=== PATIENT | male | born 1950 | race Caucasian/White ===

== ENCOUNTER 2017-01-17 08:51 | Day surgery (SDC) | payer OTHER ==
[2017-01-17] MEDS ORDERED: LIDOCAINE HCL 2% LUER-JET ONE (12:15)
[2017-01-17] MEDS ORDERED: DIPRIVAN 20 ML VIAL IVP ONE (12:15)
[2017-01-17] MEDS ORDERED: VERSED ONE (12:15)
[2017-01-17 13:55] VITALS: BP 126/67; TEMP 98
--- NOTE | 2017-01-18 11:12 | OP ---
INDICATIONS FOR PROCEDURE: 66 year old gentleman presents for colonoscopy. He has a history of adenomatous polyps with last colonoscopy over 5 years ago. He is also having heartburn with break through reflux symptoms. MEDICATIONS: SEE ANESTHESIA NOTES. PROCEDURE: 1. ENDOSCOPY 2. COLONOSCOPY SNARE POLYPECTOMY REPORT: The risks, benefits, alternatives and limitations were discussed in detail with the patient. Informed consent was obtained. After adequate sedation was achieved, the video endoscope was introduced in the posterior pharynx and esophagus under direct vision and easily advanced down to the second portion of the duodenum. I then slowly withdrew. The duodenal mucosa appeared unremarkable as did the duodenal bulb. The antrum body is relatively unremarkable. The scope was retroflexed to look at the cardia and fundus which was unremarkable. The scope was anteflexed and withdrawn back through the esophagus. GE junction was at the top of the gastric folds, it appeared unremarkable and esophageal mucosa was unremarkable. The patient tolerated the procedure well with stable vital signs and pulse oximetry throughout. The patient's bed was turned and a digital rectal exam revealed good tone, no masses. The colonoscope was introduced into the rectum and advanced under direct visual guidance to the cecum. The cecum was identified by the appendiceal orifice and IC valve. I then slowly withdrew the scope in a circumferential manner and examined the mucosa quite carefully. I looked on the proximal and distal sides of the folds and flexures as best as possible and was able to retroflex the scope in the right colon and left colon to increase visualization. In the ascending colon there was a diminutive 3-4mm polyp that I destroyed using a hot snare. The remaining colon was unremarkable other than mild diverticulosis scattered throughout the sigmoid. The scope was retroflexed to look at the anal canal which was unremarkable as well. The prep was good and the withdraw time was 10 minutes and 32 seconds. The patient tolerated the procedure well with stable vital signs and pulse oximetry throughout. IMPRESSION: 1. Normal upper endoscopy exam 2. Diminutive colon polyp destroyed. 3. Sigmoid diverticulosis RECOMMENDATIONS: 1. Strict reflux precautions 2. High fiber diet 3. Office visit as needed 4. Colonoscopy examination again in 5 years or sooner if there are signs or symptoms to indicate otherwise. CC: Dr. Arturo FONTANA
== END 2017-01-17 13:50 | disposition home or self-care (01) ==
LOC: SURG 08:51
PROVIDERS: ATTEND Internal Medicine Gastroenterology
DX: Z09 Encounter for follow-up examination after completed treatment for conditions other than malignant neoplasm (principal); Z86.010 Personal history of colon polyps; K63.5 Polyp of colon; K21.9 Gastro-esophageal reflux disease without esophagitis; K57.30 Diverticulosis of large intestine without perforation or abscess without bleeding

== ENCOUNTER 2017-01-23 09:20 | Outpatient (CLI) | payer OTHER ==
--- NOTE | 2017-01-23 09:56 | CT ---
EXAM: CT cervical spine without contrast HISTORY: Neck pain going down right hand COMPARISON: None TECHNIQUE: CT cervical spine performed without intravenous contrast. Coronal and sagittal reformatt ed images obtained. FINDINGS: Vertebral bodies normal height. No fracture. No subluxation. Straightening of the duran l cervical lordosis. Mild to moderate multilevel intervertebral disc space narrowing. Multilevel ma rginal osteophyte formation. Multilevel facet and uncovertebral hypertrophy. Prevertebral soft tiss ues appear normal. C2-C3: No central canal or neural foraminal narrowing. C3-C4: Posterior disc osteophyte complex and facet arthrosis causing mild central canal, moderate to severe right and moderate left neural foraminal narrowing. C4-C5: Posterior disc osteophyte complex and facet arthrosis causing mild to moderate central canal, moderate to severe right and moderate left neural foraminal narrowing. C5-C6: No central canal or neural foraminal narrowing. C6-C7: No central canal or neural foraminal narrowing. C7-C1: No central canal or neural foraminal narrowing. IMPRESSION: 1. Chronic discogenic degenerative disease and facet arthrosis, greatest at C3-C4, C4-C5. Please se e segmental analysis. 2. Straightening of the normal cervical lordosis
== END 2017-01-23 09:21 | disposition home or self-care (01) ==
LOC: RAD 09:20
PROVIDERS: ATTEND Internal Medicine
DX: M54.2 Cervicalgia (principal); R20.2 Paresthesia of skin

== ENCOUNTER 2017-08-09 09:38 | Emergency (ER) ==
[2017-08-09 09:44] VITALS: BP 128/76; TEMP 96.6; BMI 25.7
[2017-08-09] MEDS ORDERED: LIDOCAINE HCL 1% SDV ONE (09:58)
[2017-08-09] MEDS ORDERED: LIDOCAINE HCL 1% SDV SUBCUT STA (09:58)
[2017-08-09] MEDS ORDERED: TENIVAC IM ONE (10:07)
--- NOTE | 2017-08-09 10:10 | ED.PDOC ---
General ED Provider: Dr. ANNA IBARRA Chief Complaint: Finger Laceration Stated Complaint: FINGER LACERATION LEFT THUMB Time Seen by Physician: 10:00 (SEE PHOTOS) Mode of Arrival: Walk-In Information Source: Patient Exam Limitations: No limitations Primary Care Provider: SHIRLENE TEMPLE Nursing and Triage Documentation Reviewed and Agree: Yes Reviewed sepsis parameters & appropriate labs ordered?: Yes System Inflammatory Response Syndrome: Not Applicable Sepsis Protocol: For patient's 13 years and over: Temp is 96.8 and below OR 101 and greater Pulse >90 BPM Resp >20/minute Acutely Altered Mental Status Are patient's symptoms suggestive of a new infection, such as: -Pneumonia -Skin, Soft Tissue -Endocarditis -UTI -Bone, Joint Infection -Implantable Device -Acute Abdominal Infection -Wound Infection -Meningitis -Blood Stream Catheter Infection -Unknown System Inflammatory Response Syndrome: Not Applicable Skin Complaint Exam - Lac/Torso/Upper Ext. Complaint/Exam Location of Injury: Left (THUMB SEE PHOTOS) Mechanism of Injury: Laceration Symptoms Are: Still present Initial Severity: Mild Current Severity: None Aggravating: None Alleviating: None Associated Signs and Symptoms: Denies: Fever, Chills, Erythema, Numbness, Tingling Differential Diagnoses: Laceration Review of Systems - Review Of Systems Constitutional: Reports: No symptoms Eyes: Reports: No symptoms Ears, Nose, Mouth, Throat: Reports: No symptoms Respiratory: Reports: No symptoms Cardiac: Reports: No symptoms GI: Reports: No symptoms : Reports: No symptoms Musculoskeletal: Reports: No symptoms Skin: Reports: Other (LACERATION LEFT THUMB) Neurological: Reports: No symptoms Endocrine: Reports: No symptoms Hematologic/Lymphatic: Reports: No symptoms All Other Systems: Reviewed and Negative Past Medical History - Past Medical History Previously Healthy: Yes Endocrine: Reports: None Cardiovascular: Reports: None Respiratory: Reports: None Hematological: Reports: None Gastrointestinal: Reports: None Genitourinary: Reports: None Neuro/Psych: Reports: None Musculoskeletal: Reports: None Cancer: Reports: None - Surgical History General Surgical History: Reports: None - Family History Family History: Reports: None - Social History Smoking Status: Former smoker Hx Substance Use: No Alcohol Screening: None - Immunizations Tetanus Shot up to Date: No Physical Exam - Physical Exam Appearance: Well-appearing, No pain distress, Well-nourished Eyes: ALEXANDRA, EOMI, Conjunctiva clear ENT: Ears normal, Nose normal, Oropharynx normal Respiratory: Airway patent, Breath sounds clear, Breath sounds equal, Respirations nonlabored Cardiovascular: RRR, Pulses normal, No rub, No murmur GI/: Soft, Nontender, No masses, Bowel sounds normal, No Organomegaly Musculoskeletal: Normal strength, ROM intact, No edema, No calf tenderness Skin: Warm, Dry (1CM LACERATION LEFT THUMB) Neurological: Sensation intact, Motor intact, Reflexes intact, Cranial nerves intact, Alert, Oriented Psychiatric: Affect appropriate, Mood appropriate Procedures - Laceration/Wound Repair No standard instances Wound Description: Linear Wound Length (cm): 1CM Wound Width: 1MM Wound Depth: 1MM Wound Explored: Clean Wound Irrigated: No Wound Prep: Hibiclens Anesthesia: Lidocaine (1ML PLAIN 1 PERCENT) Wound Debrided: Minimal Wound Repaired With: Sutures (3 PROLENE) Suture Size and Type: 3/PROLENE Number of Sutures: 5 Number of [place]: 0 Critical Care Note - Critical Care Note Total Time (mins): 0 Course - Course Orders, Labs, Meds: Orders Category Date Time Status Lidocaine HCl/Pf [Lidocaine HCl 1% Sdv] MEDS 08/09/17 09:58 Discontinued 5 ml .ROUTE .STK-MED ONE Lidocaine HCl/Pf [Lidocaine HCl 1% Sdv] MEDS 08/09/17 09:58 Discontinued 5 ml SUBCUT ONCE STA Tetanus and Diphtheria Tox/Pf [Tenivac] MEDS 08/09/17 10:07 Once 0.5 ml IM .ONCE ONE Medications Discontinued Medications Generic Name Dose Route Start Last Admin Trade Name Freq PRN Reason Stop Dose Admin Lidocaine HCl 5 ml 08/09/17 09:58 Lidocaine Hcl 1% Sdv SUBCUT 08/09/17 09:59 ONCE STA Vital Signs: Temp Pulse Resp BP Pulse Ox 08/09/17 09:40 96.6 F L 59 L 16 128/76 96 Departure - Departure Time of Disposition: 10:10 Disposition: HOME SELF-CARE Discharge Problem: Laceration of finger Instructions: Finger Laceration (ED) Condition: Good Pt referred to PMD for follow-up: Yes IPMP verified?: No Additional Instructions: Please call your Family Physician as soon as possible to schedule a follow-up appointment. Allergies/Adverse Reactions: Allergies No Known Allergies Allergy (Verified 08/09/17 09:44) Home Medications: Ambulatory Orders Ascorbic Acid [Vitamin C] 1,000 mg PO DAILY 01/17/17 Cholecalciferol (Vitamin D3) [Vitamin D3] 1,000 unit PO DAILY 01/17/17 Lansoprazole 30 mg PO DAILY 01/17/17 Losartan Potassium 100 mg PO DAILY 01/17/17 Multivitamin 1 cap PO DAILY 01/17/17 [place]-3/Dha/Epa/Fish Oil [[place] 3 500 Softgel] 1,000 mg PO BID 01/17/17 Simvastatin 40 mg PO DAILY 01/17/17 Tamsulosin HCl [Flomax] 0.4 mg PO DAILY 01/17/17 Trazodone HCl 50 mg PO PRN PRN 01/17/17
== END 2017-08-09 10:46 | disposition home or self-care (01) ==
LOC: ED 09:38
DX: S61.012A Laceration without foreign body of left thumb without damage to nail, initial encounter (principal); W45.8XXA Other foreign body or object entering through skin, initial encounter
CPT/HCPCS: 90471; 90714; 99283

== ENCOUNTER 2021-01-07 09:21 | Inpatient (IN) ==
[2021-01-07 09:45] LABS: BORDETELLA PARAPERTUSSIS (PCR) NOT DETECTED (NOT DETECT); BORDETELLA PERTUSSIS (PCR) NOT DETECTED (NOT DETECT); CHLAMYDIA PNEUMONIAE (PCR) NOT DETECTED (NOT DETECT); CORONAVIRUS 229E (PCR) NOT DETECTED (NOT DETECT); CORONAVIRUS HKU1 (PCR) NOT DETECTED (NOT DETECT); CORONAVIRUS NL63 (PCR) NOT DETECTED (NOT DETECT); CORONAVIRUS OC43 (PCR) NOT DETECTED (NOT DETECT); HUMAN METAPNEUMOVIRUS (PCR) NOT DETECTED (NOT DETECT); HUMAN RHINOVIRUS/ENTEROV (PCR) NOT DETECTED (NOT DETECT); INFLUENZA B (PCR) NOT DETECTED (NOT DETECT); MYCOPLASMA PNEUMONIAE (PCR) NOT DETECTED (NOT DETECT); PARAINFLUENZA VIRUS 1 (PCR) NOT DETECTED (NOT DETECT); PARAINFLUENZA VIRUS 2 (PCR) NOT DETECTED (NOT DETECT); PARAINFLUENZA VIRUS 3 (PCR) NOT DETECTED (NOT DETECT); PARAINFLUENZA VIRUS 4 (PCR) NOT DETECTED (NOT DETECT); RESPIRATORY SYNCYTIAL V (PCR) NOT DETECTED (NOT DETECT)
[2021-01-07 10:34] LABS: ADENOVIRUS (PCR) NOT DETECTED (NOT DETECT)
[2021-01-07 10:35] LABS: SARS_COV_2 (PCR) NOT DETECTED (NOT DETECT)
[2021-01-07] MEDS ORDERED: ATROPINE SULFATE PFS IVP PRN (11:36)
[2021-01-07] MEDS ORDERED: NITROSTAT SL PRN (11:36)
[2021-01-07] MEDS ORDERED: TYLENOL PO PRN (11:36)
[2021-01-07 11:51] VITALS: BMI 26.9
[2021-01-07 11:57] LABS: BASOPHILS # (AUTO) 0.1 K/uL (0-0.2); BASOPHILS % (AUTO) 1.3 % (0.0-3.0); EOSINOPHILS # (AUTO) 0.1 K/ul (0.0-0.7); EOSINOPHILS % (AUTO) 1.5 % (0.0-7.0); HEMATOCRIT 37.7 % (42.0-52.0); HEMOGLOBIN 12.5 g/dl (14.0-18.0); IMMATURE GRANULOCYTE % (AUTO) 0.2 % (0.0-5.0); LYMPHOCYTES # (AUTO) 1.8 K/uL (0.60-3.4); LYMPHOCYTES % (AUTO) 33.4 (10.0-50.0); MEAN CORPUSCULAR HEMOGLOBIN 30.6 pg (27.0-31.0); MEAN CORPUSCULAR HGB CONC 33.2 (31.8-35.4); MEAN CORPUSCULAR VOLUME 92.4 fl (80.0-94.0); MONOCYTES # (AUTO) 0.6 K/uL (0.4-2.0); MONOCYTES % (AUTO) 10.7 (0-10); NEUTROPHILS # (AUTO) 2.9 K/ul (2.0-6.9); NEUTROPHILS % (AUTO) 52.9 % (42.2-75.2); PLATELET COUNT 197 10^3/uL (140-440); RDW COEFFICIENT OF VARIATION 12.4 % (11.6-14.8); RED BLOOD COUNT 4.08 10^6/ul (4.70-6.10); WHITE BLOOD COUNT 5.51 K/ul (4.2-10.2)
[2021-01-07 12:09] LABS: ALANINE AMINOTRANSFERASE 35.5 U/L (0-50); ALBUMIN 4.14 g/dL (3.5-5.0); ALKALINE PHOSPHATASE 57.3 U/L (56-119); ASPARTATE AMINO TRANSFERASE 34.3 U/L (17-59); BILIRUBIN,TOTAL 0.51 mg/dL (0.2-1.3); BLOOD UREA NITROGEN 13.9 mg/dL (9-20); CALCIUM 9.04 mg/dL (8.4-10.2); CARBON DIOXIDE 30.2 mmol/L (22-30.0); CHLORIDE 104.9 mmol/L (98-107); CREATINE KINASE 79.3 U/L (55-170); CREATININE 1.01 mg/dL (0.60-1.10); GLUCOSE 87.3 mg/dL (74-106); POTASSIUM 4.03 mmol/L (3.5-5.1); SODIUM 140.6 mmol/L (134.5-145); TOTAL PROTEIN 6.68 g/dL (6.3-8.2)
[2021-01-07 12:29] LABS: TROPONIN I < 0.012 ng/ml (0.0000-0.120)
--- NOTE | 2021-01-07 13:55 | DI ---
EXAM: CHEST FRONTAL VIEW HISTORY: Chest pain COMPARISON: None FINDINGS: Heart size appears prominent. No acute infiltrates are seen. No vascular congestion. Th ere is no consolidation, visible pleural fluid or pneumothorax. Bones reveal no acute fracture. IMPRESSION: Prominent heart size. No acute cardiopulmonary process.
--- NOTE | 2021-01-07 15:06 | US ---
EXAM: Carotid ultrasound HISTORY: Dizziness with position change COMPARISON: None TECHNIQUE: Carotid ultrasound was performed using Duplex imaging with oro scale, color, and Doppler imaging performed. FINDINGS: Right carotid: There is mild atherosclerotic plaque. Peak systolic velocity measurement in the righ t internal carotid artery is 0.29 meters per second. End-diastolic velocity measurement in the right internal carotid artery is 0.31 meters per second. Right internal to common carotid artery peak sys tolic velocity ratio is 1.5. Flow in the right vertebral artery is antegrade. Left carotid: There is mild atherosclerotic plaque. Peak systolic velocity measurement in the left internal carotid artery is 0.80 meters per second. End-diastolic velocity measurement in the left in ternal carotid artery is 0.24 meters per second. Left internal to common carotid artery peak systoli c velocity ratio measures 1.4. Flow in the left vertebral artery is antegrade. IMPRESSION: 1. Right internal carotid: No evidence for greater than 50% stenosis 2. Left internal carotid: No evidence for greater than 50% stenosis
[2021-01-07 15:07] LABS: BILIRUBIN,URINE Negative (NEGATIVE); CLARITY,URINE Clear (CLEAR); COLOR,URINE Yellow (YELLOW); GLUCOSE, URINE (UA) Negative (NEGATIVE); KETONES,URINE Negative (NEGATIVE); LEUKOCYTE ESTERASE ,URINE Negative (NEGATIVE); NITRITE,URINE Negative (NEGATIVE); PH,URINE 6.5 (5-9); PROTEIN,URINE Negative (NEGATIVE); URINE, BLOOD Trace-intact (NEGATIVE); UROBILINOGEN,URINE 0.2 (0.2)
[2021-01-07 15:09] LABS: SQUAMOUS EPITHELIAL CELL,UR NOT PRESENT (0-5)
[2021-01-07] MEDS ORDERED: MULTIVITAMIN TABLET PO SCH (17:00)
[2021-01-07] MEDS ORDERED: FLOMAX PO SCH (17:00)
[2021-01-07] MEDS: PROTONIX PO SCH (17:19)
[2021-01-07 20:01] LABS: CREATINE KINASE 65.2 U/L (55-170)
[2021-01-07 20:14] LABS: TROPONIN I < 0.012 ng/ml (0.0000-0.120)
[2021-01-07] MEDS: NORCO 7.5-325 PO PRN (20:35)
[2021-01-07] MEDS ORDERED: ZOCOR PO SCH (21:00)
[2021-01-07] MEDS ORDERED: DESYREL PO SCH (21:00)
[2021-01-07] MEDS ORDERED: NON-FORMULARY MEDICATION (Diclofenac Sodium 50 mg Tablet,Delayed Release (Dr/Ec)) PO SCH (21:00)
[2021-01-08 06:04] LABS: BASOPHILS # (AUTO) 0.1 K/uL (0-0.2); EOSINOPHILS # (AUTO) 0.1 K/ul (0.0-0.7); EOSINOPHILS % (AUTO) 1.9 % (0.0-7.0); HEMOGLOBIN 12.4 g/dl (14.0-18.0); IMMATURE GRANULOCYTE % (AUTO) 0.3 % (0.0-5.0); LYMPHOCYTES # (AUTO) 1.7 K/uL (0.60-3.4); LYMPHOCYTES % (AUTO) 24.5 (10.0-50.0); MEAN CORPUSCULAR HGB CONC 31.8 (31.8-35.4); MEAN CORPUSCULAR VOLUME 94.2 fl (80.0-94.0); MONOCYTES # (AUTO) 0.7 K/uL (0.4-2.0); MONOCYTES % (AUTO) 10.1 (0-10); NEUTROPHILS # (AUTO) 4.3 K/ul (2.0-6.9); NEUTROPHILS % (AUTO) 62.2 % (42.2-75.2); PLATELET COUNT 192 10^3/uL (140-440); RDW COEFFICIENT OF VARIATION 12.6 % (11.6-14.8); RED BLOOD COUNT 4.14 10^6/ul (4.70-6.10); WHITE BLOOD COUNT 6.86 K/ul (4.2-10.2)
[2021-01-08 06:23] LABS: ALANINE AMINOTRANSFERASE 34.7 U/L (0-50); ALBUMIN 3.81 g/dL (3.5-5.0); ALKALINE PHOSPHATASE 56.6 U/L (56-119); ASPARTATE AMINO TRANSFERASE 32.1 U/L (17-59); BILIRUBIN,TOTAL 0.38 mg/dL (0.2-1.3); CALCIUM 9.1 mg/dL (8.4-10.2); CARBON DIOXIDE 31.7 mmol/L (22-30.0); CHLORIDE 104.9 mmol/L (98-107); CREATININE 0.96 mg/dL (0.60-1.10); GLUCOSE 90.4 mg/dL (74-106); POTASSIUM 4.02 mmol/L (3.5-5.1); SODIUM 140.5 mmol/L (134.5-145); TOTAL PROTEIN 6.19 g/dL (6.3-8.2)
[2021-01-08] MEDS: PROTONIX PO SCH (07:49)
[2021-01-08] MEDS: NORCO 7.5-325 PO PRN (08:25)
[2021-01-08] MEDS ORDERED: ASPIRIN EC PO SCH (08:30)
[2021-01-08] MEDS ORDERED: ULTRAM PO SCH (09:00)
[2021-01-08] MEDS ORDERED: OMEGA-3 FISH OIL PO SCH (09:00)
[2021-01-08] MEDS ORDERED: LEXAPRO PO SCH (09:00)
[2021-01-08] MEDS ORDERED: NON-FORMULARY MEDICATION (Aspirin 81 mg Tablet) PO SCH (09:00)
[2021-01-08] MEDS ORDERED: OMEGA DHA EPA FISH OIL PO SCH (09:00)
[2021-01-08] MEDS ORDERED: COZAAR PO SCH (09:00)
[2021-01-08] MEDS ORDERED: DECADRON IM ONE (09:35)
--- NOTE | 2021-01-08 11:10 | PCM.PROG ---
Attending Provider: ATTENDING PROVIDER: Dr. SHIRLENE TEMPLE DATE OF SERVICE: 01/08/21 SUBJECTIVE: This 70 year old /WHITE M was hospitalized 01/07/21 with bradyarrhythmia which was noted by Pain Management. At that time the patient was supposed to get a shot in his back and was sen to primary care. The patient has chest pain which is equivocal for coronary insufficiency. The patient is not a good historian. He has a family history of heart disease, dyslipidemia and hypertension. So far telemetry has showed lowest heart rate as 37, no pauses or any other arrhythmia. REVIEW OF SYSTEMS: CONSTITUTIONAL: No night sweats. No fatigue, malaise, lethargy. No fever or chills. HEENT: Eyes: No visual changes. No eye pain. No eye discharge. ENT: No runny nose. No epistaxis. No sinus pain. No odynophagia. No congestion. RESPIRATORY: No cough, no congestion. No hemoptysis. No shortness of breath. CARDIOVASCULAR: No angina symptoms. No CHF symptoms. No atypical chest pain for CAD. No palpitations. No orthopnea.. GASTROINTESTINAL: No abdominal pain. No nausea or vomiting. No diarrhea or constipation. No hematemesis. No hematochezia. GENITOURINARY: No urgency. No frequency. No dysuria. No hematuria. No obstructive symptoms. No discharge. No pain. No significant abnormal bleeding. MUSCULOSKELETAL: No musculoskeletal pain; no joint swelling. Neck pain. NEUROLOGICAL: Awake, alert, oriented to time, place and person. No headache. No neck pain. No syncope. No seizures. No dizziness. PSYCHIATRIC: Not anxious. No depression. No suicidal thoughts. No homicidal thoughts. SKIN: No rash. No lesions. No wounds. ENDOCRINE: No unexplained weight loss. No weight gain. HEMATOLOGIC/LYMPHATIC: No anemia. No purpura. No petechiae. No prolonged or excessive bleeding. No palpable lymph nodes. PHYSICAL EXAMINATION: GENERAL: The patient is awake, alert and oriented, lying in bed in no distress. VITAL SIGNS: Temperature 97.8 F, Pulse 50, Respiratory Rate 16, BP 122/72, Pulse Ox 96% HEENT: Head normocephalic, atraumatic. Eyes: Extraocular muscles are intact. Pupils are equal, round and reactive to light and accommodation. Ears: No lesions. Nose appeared normal. Throat: No exudate or erythema. NECK: Supple. No JVD, no carotid bruit. No lymphadenopathy or thyromegaly. LUNGS: Decreased breath sounds. Clear to auscultation. Percussion note normal. Chest symmetrical. HEART: S1, S2, no S3. No murmurs. No cyanosis or clubbing. No ascites. Pulses: Dorsalis pedis and posterior tibial pulses +1 to +2 both sides. ABDOMEN: Soft. Non-tender. Bowel sounds active. No CVA tenderness. No mass felt. EXTREMITIES: No edema. Full range of motion of all extremities, equal. NEUROLOGIC: No focal deficit. Cranial nerves II through XII are grossly intact. No headache, no double vision or headache. SKIN: Warm and dry. Intact. Turgor-normal. LYMPHATIC: No palpable lymph nodes/no lymphedema. MUSCULOSKELETAL: Normal joints with no swelling. Muscle tone is normal. LAB REVIEW: 01/08/21 05:10 01/08/21 05:10 01/08/21 05:10: Sodium 140.5, Potassium 4.02, Chloride 104.9, Carbon Dioxide 31.7 H, Anion Gap 7.92, BUN 18.0, Creatinine 0.96, Estimated GFR (MDRD) 78.00, BUN/Creatinine Ratio 18.75, Glucose 90.4, Calcium 9.10, Total Bilirubin 0.38, AST 32.1, ALT 34.7, Alkaline Phosphatase 56.6, Total Protein 6.19 L, Albumin 3.81, Globulin 2.38, Albumin/Globulin Ratio 1.60 01/08/21 05:10: WBC 6.86, RBC 4.14 L, Hgb 12.4 L, Hct 39.0 L, MCV 94.2 H, MCH 3 0.0, MCHC 31.8, RDW Coeff of Donn 12.6, Plt Count 192, Immature Gran % (Auto) 0.3, Neut % (Auto) 62.2, Lymph % (Auto) 24.5, [place] % (Auto) 10.1 H, Eos % (Auto) 1.9, Baso % (Auto) 1.0, Neut # (Auto) 4.3, Lymph # (Auto) 1.7, [place] # (Auto) 0.7, Eos # (Auto) 0.1, Baso # (Auto) 0.1, Immature Gran # (Auto) 0.0 01/07/21 19:47: Total Creatine Kinase 65.2, Troponin I < 0.012 01/07/21 13:58: Urine Color Yellow, Urine Clarity Clear, Urine pH 6.5, Ur Specific [place] 1.020, Urine Protein Negative, Urine Glucose (UA) Negative, Urine Ketones Negative, Urine Blood Trace-intact H, Urine Nitrite Negative, Urine Bilirubin Negative, Urine Urobilinogen 0.2, Ur Leukocyte Esterase Negative, Urine Microscopic RBC 2-5, Ur Squamous Epith Cells Not present 01/07/21 11:53: Free T4 1.11 01/07/21 11:53: Sodium 140.6, Potassium 4.03, Chloride 104.9, Carbon Dioxide 30.2 H, Anion Gap 9.53, BUN 13.9, Creatinine 1.01, Estimated GFR (MDRD) 73.00, B UN/Creatinine Ratio 13.76, Glucose 87.3, Calcium 9.04, Total Bilirubin 0.51, AST 34.3, ALT 35.5, Alkaline Phosphatase 57.3, Total Creatine Kinase 79.3, Troponin I < 0.012, Total Protein 6.68, Albumin 4.14, Globulin 2.54, Albumin/Globulin Ratio 1.62, TSH 1.450 01/07/21 11:53: WBC 5.51, RBC 4.08 L, Hgb 12.5 L, Hct 37.7 L, MCV 92.4, MCH 30.6, MCHC 33.2, RDW Coeff of Donn 12.4, Plt Count 197, Immature Gran % (Auto) 0.2, Neut % (Auto) 52.9, Lymph % (Auto) 33.4, [place] % (Auto) 10.7 H, Eos % (Auto) 1.5, Baso % (Auto) 1.3, Neut # (Auto) 2.9, Lymph # (Auto) 1.8, [place] # (Auto) 0.6 , Eos # (Auto) 0.1, Baso # (Auto) 0.1, Immature Gran # (Auto) 0.0 01/07/21 09:40: Adenovirus (PCR) Not detected, B. pertussis DNA (PCR) Not detected, B.parapertussis DNA PCR Not detected, C. pneumoniae DNA (PCR) Not detected, Coronavirus OC43 (PCR) Not detected, Coronavirus HKU1 (PCR) Not detected, Coronavirus 229E (PCR) Not detected, Coronavirus NL63 (PCR) Not detected, Human Metapneumovir PCR Not detected, Influenza Type A (PCR) Not detected, Influenza B (RT-PCR) Not detected, M. pneumoniae (PCR) Not detected, Parainfluenza 1 (PCR) Not detected, Parainfluenza 2 (PCR) Not detected, Parainfluenza 3 (PCR) Not detected, Parainfluenza 4 (PCR) Not detected, RSV (PCR) Not detected, Entero/Rhino (PCR) Not detected, SARS-CoV-2 (PCR) Not detected ASSESSMENT: Please see below. 1. Sinus bradyarrythmia, symptomatic 2. DJD spine 3. Dyslipidemia 4. Hypertension. PLAN: 1. Stress test echo before discharge 2. Holter to be taken off in afternoon and reviewed before discharge Plan and coordination of the patient's care discussed in the presence of Dynamometer Tester and nurse. SCRIBED BY: Leonie CAM scribed while in presence of service performed by Dr. SHIRLENE TEMPLE on 01/08/21 ([id number])
--- NOTE | 2021-01-08 13:03 | HP ---
DATE OF SERVICE: 01/07/2021 REASON FOR HOSPITALIZATION/HISTORY OF PRESENT ILLNESS: Sinus headache today. Chest pain off and on with and without exertion. He was working hard last couple of weeks with doing sweta. Day before yesterday was not given shot in the back because his pulse was 45 beats per minute. Was advised hospitalization on 01/05/21 but declined. PAST MEDICAL HISTORY: History of dyslipidemia Severe DJD of spine followed by Dr. Cunha at [facility] Spinal nerve ablation 05/16 Dr. Ann Osteoarthritis knees, Dr. Membreno Right shoulder Osteoarthritis Dr. Membreno Depression on Lexapro History of kidney stone Hypertension Bones marrow 08/13 Anemia Obstructive sleep apnea on CPAP Status left foot surgery Dr. Ivory BPH Cervical radiculopathy Status post cholecystectomy PAST SURGICAL HISTORY: Eye lids raised Bilateral cataracts Lens implant Bilateral rotator cuff repair Gallbladder Bilateral inguinal hernia repair Bilateral knee scope Bilateral foot surgery T&A childhood. REVIEW OF SYSTEMS: CONSTITUTIONAL: No fever, no fatigue. HEENT: Sinus drainage, no sore throat. RESPIRATORY: No cough, no congestion. CARDIOVASCULAR: Atypical chest pain for coronary artery disease. Angina, CHF symptoms, palpitations or shortness of breath. GASTROINTESTINAL: No melena or abdominal pain. No GERD. GENITOURINARY: No hematuria, no prostatism, no polyuria. LICENSED VETERINARY TECHNICIAN: No blackout, no dizziness, Headache-sinus, no double vision. MUSCULOSKELETAL: No osteoarthritis pain, no joint swelling. ENDOCRINE: No weight loss, no weight gain. SKIN: Not dry, no rash. PSYCHIATRIC: Not anxious, no depression, no suicidal thoughts, no homicidal thoughts. SOCIAL HISTORY: Marital Status: . Alcohol Usage: Socially . Tobacco Usage: No. FAMILY HISTORY: Father: unknown Mother: unknown Brother: 8 brothers alive and one diabetes mellitus and hypertension Sister: 1 MEDICATIONS: Losartan 100mg Escitralopram 10mg Tramadol HCL 50mg Hydrocodone/APAP 7.5 TID PRN Fish oil 1000mg Aspirin 81mg Centrum silver Tamsulosin HCL 0.4mg Simvastatin 40mg Pantoprazole 40mg Trazodone 50mg Diclofenac 50mg HS Moderna 05/26 and 07/03 ALLERGIES: No known drug allergies PHYSICAL EXAMINATION: V/S: Pulse 57, blood pressure 112/68, temperature 97.7, oxygen saturation 97%. BMI 27.2, height 5'7, weight 173.8 GENERAL APPEARANCE: Oriented times three. HEENT: Normal. NECK: No JVP, no bruits. RESPIRATORY: Lungs are clear. CARDIOVASCULAR: S1, S2, no S3, no murmur. No cyanosis, clubbing. No ascites. GI/ABDOMEN: No tenderness. Bowel sounds are active. EXTREMITIES: edema, pulses +1, equal. LICENSED VETERINARY TECHNICIAN: Deep tendon reflexes, sensory, motor and gait all normal. RECTAL: Colonoscopy 01/28/20 Dr. Coley repeat 5 years./PROSTATE: 04/21/20 (1.3). ASSESSMENT: 1. Bradyarrhythmia 2. Chest pain typical/atypical for coronary artery disease 3. History of dyslipidemia 4. Severe DJD of spine [facility] 5. Spinal nerve ablation 05/16 Dr. Ann 6. 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 Right shoulder Osteoarthritis Dr. Membreno 8. Depression on Lexapro 9. History of kidney stone 10.Hypertension 11.Bones marrow 08/13 12.Anemia 13.Obstructive sleep apnea on CPAP 14.Status left foot surgery Dr. Ivory 15.BPH 16.Cervical radiculopathy 17.Status post cholecystectomy PLAN: 1. Admit 2. Routine telemetry monitoring 3. T4 TSH 4. Carotid scan 5. Holter Monitor 6. Echo 7. Stress echo 8. [facility]- Bone marrow report 08/13 TIME SPENT: More than 70 minutes. MTDD
[2021-01-08 14:27] VITALS: BP 162/90; TEMP 96.8
--- NOTE | 2021-01-11 08:10 | STRESSECHO ---
Date of Test: 01/08/2021 Ordering Physician: DR. SHIRLENE TEMPLE Occupation:RETIRED Reason for Exam: BRADYCARDIA, CHEST PAIN Smoking History: QUIT 25 YRS AGO Height: 67" Weight: 176 LBS Target Heart Rate: 128/151 Current Medications: TRAMADOL, TAMSULOSIN, SIMVASTATIN, PANTOPRAZOLE, LOSARTAN, NORCO, ESCITALOPRAM, CARISOPRODOL Resting EKG: SINUS RHYTHM/ BRADYCARDIA S-T SEGMENT STAGE MPH/GRADE HEART RATE BPM BLOOD PRESSURE MMHG RHYTHM +/- ELEVATION DEPRESSION SYMPTOMS AT REST 45 BPM 118/62 MMHG SR X NONE 1 1.7/10% 104 BPM 138/58 MMHG SR X NONE 2 2.5/12% 3 3.4/14% 4 4.2/16% 5 5.0/18% Immediately After 128 BPM 146/60 MMHG SR X FATIGUE Minutes Post Exercise 1" 90 BPM SR X NONE Minutes Post Exercise 5" 70 BPM 132/62 MMHG SR X NONE DURATION OF EXERCISE: 5:11 MAXIMUM HEART RATE REACHED: 128 BPM REASON FOR TERMINATION: FATIGUE 88% OXYGEN SATURATION WITH EXERCISE ON ROOM AIR METS 7.0 INTERPRETATION: 1. NO EVIDENCE OF ISCHEMIA BY ST-T WAVE 2. NO CHEST PAIN OR DISCOMFORT 3. NO ARRHYTHMIAS 4. BLOOD PRESSURE RESPONSE NORMAL NORMAL LEFT VENTRICLE CONTRACTILITY--RESTING AND POST EXERCISE MTDD
--- NOTE | 2021-01-11 08:19 | ECHO2D ---
Date of Exam: 01/08/2021 Ordering Physician: DR. SHIRLENE TEMPLE Room #: [id number] Reason for Echo: CHEST PAIN, BRADYCARDIA M-Mode Normal Adult Results LV Dimensions Normal Adult Results AoV Opening excursions >1.6 >1.6 LVEDD-base- 3.5-5.8 4.8 Ao root dimensions 2.0-3.7 3.2 LVESD-base- 3.1-4.6 L. Atrium dimensions 1.9-3.8 4.8 Post. Wall thickness 0.8-1.1 1.2 IV septum (thickness) 0.7-1.2 1.3 Post. Wall excursion 0.72-1.3 NORMAL Septal motion NORMAL Systolic motion R. Ventricular cavity 1.5-2.0 NORMAL LVEF 60% 64% Paradoxical septal wall motion NORMAL 2-D : 2-D M Mode Echocardiogram was performed using apical four chamber and left parasternal long and short axis views. Mitral, tricuspid and aortic valves appear to be normal. Contractility of the left ventricle seems to be normal, so is the cavity size. ENLARGED LEFT ATRIAL CAVITY SIZE. Aortic root appears to be normal. There is no pericardial effusion. There is no thrombus noted in the left ventricle or left atrial cavity. M-MODE: MV: NORMAL AV: NORMAL TV: NORMAL PV: CHAMBER SIZE: ENLARGED LEFT ATRIAL CAVITY WALL MOTION: NORMAL PERICARDIUM: NORMAL INTERPRETATION: 1. LEFT VENTRICLE HYPERTROPHY WITH ENLARGED LEFT ATRIAL CAVITY 2. NORMAL LEFT VENTRICLE CONTRACTILITY 3. NORMAL VALVES MTDD
--- NOTE | 2021-01-11 08:23 | ECHOSTRESS ---
Date of Exam: 01/08/2021 Ordering Physician: DR. SHIRLENE TEMPLE Reason for Echo: CHEST PAIN, BRADYCARDIA, STRESS TEST--NO ISCHEMIA M-Mode Normal Adult Results LV Dimensions Normal Adult Results AoV Opening excursions >1.6 LVEDD-base- 3.5-5.8 Ao root dimensions 2.0-3.7 LVESD-base- 3.1-4.6 L. Atrium dimensions 1.9-3.8 Post. Wall thickness 0.8-1.1 IV septum (thickness) 0.7-1.2 Post. Wall excursion 0.72-1.3 Septal motion Systolic motion R. Ventricular cavity 1.5-2.0 LVEF 60% Paradoxical septal wall motion 2-D: NORMAL LEFT VENTRICLE CONTRACTILITY--RESTING AND POST EXERCISE M-MODE: MV: AV: TV: PV: CHAMBER SIZE: WALL MOTION: NORMAL LEFT VENTRICLE CONTRACTILITY--RESTING AND POST EXERCISE PERICARDIUM: INTERPRETATION: 1. NORMAL LEFT VENTRICLE CONTRACTILITY--RESTING AND POST EXERCISE MTDD
--- NOTE | 2021-01-11 08:28 | HOLTER ---
PATIENT INFORMATION AND COMMENTS Attending Physician: DR. SHIRLENE TEMPLE Indications: BRADYCARDIA __ Patient Medications: ASA, DICLOFENAC, ESCITALOPRAM, NORCO, LOSARTAN __ Pre-procedure Summary: Protocol: Standard Heart Rate Started: 01/07/2021 1327 Minimum: 37 BPM Weight: 176 LBS Ended: 01/08/2021 1148 Maximum: 93 BPM Height: 67" Duration: 22 HRS 21 MIN Average: 48 BPM _ INTERPRETATIONS/OBSERVATIONS: 1. BASIC RHYTHM: SINUS, RATE 37 BPM TO 93 BPM, AVERAGE 48 BPM 2. RARE --INTERPOLATED PVC'S AND RARE PAC'S 3. NO PAUSES GREATER THAN 2.[address]- T WAVE CHANGES FROM BASELINE 5. ACTIVITY LOG--NOT HELPFUL MTDD
--- NOTE | 2021-01-12 13:49 | DS ---
DATE OF SERVICE: 01/08/2021 FINAL DIAGNOSIS: 1. Bradycardia 2. Hypertension 3. Dyslipidemia 4. Depression 5. Severe generalized osteoarthritis involving C spine, L spine and multiple other joints. 6. Gastroesophageal reflux disease 7. BPH DISCHARGE INSTRUCTIONS: Discharge home. No change in the medications. MEDICATIONS AT DISCHARGE: Losartan Simvastatin Tamsulosin Omeprazole Aspirin Diclofenac Lexapro Narco Trazodone DIET INSTRUCTIONS: As tolerated ACTIVITY: As tolerated LABS: Hgb 12.4, hct 39, WBC 6,800 normal differential, WBC 6,800 normal differential, creatinine 0.9, BUN 18, potassium 4. COVID negative. T4 TSH normal. HOSPITAL COURSE: 70 year old white male hospitalized because he was refused the shot in the back which was due at [facility] because the patient's pulse rate was noted to be 45 per minute. He was sent to be checked out by me. He walked in and his EKG showed sinus bradycardia with a rate of 45. At that time he declined any hospitalization. He was admitted after two days for further evaluation. The patient also had chest pain what were typical and atypical. Coronary insufficiency kind of equivocal. The patient is poor historian. In any case the patient was monitored. He also had a Holter Monitor. Monitored showed lowest rate at 37 per minute fastest rate of 50-55 per minute and did not have any pause of more than 2 seconds. no other arrhythmias were noted except for sinus bradycardia. Underwent stress echo where his heart rate went up to [address]-T wave change. No chest pain. The blood pressure response was good. Oxygen saturation was normal. LVH contractility was normal at rest and post exercise. During monitor period no other pauses or any other arrhythmias were noted except for his heart rate where 37 at night. The patient is practically asymptomatic. His T4 TSH is normal. Echo at rest showed normal LV contractility with LVH with enlarged LA cavity, valvular structures are normal. The patient will undergo Holter Monitor every 6 months. Advised to report any near syncopal episode or black out spell or dizziness. The patient doesn't have any symptoms from his bradyarrhythmias which usual happens at resting. He was discharged in stable condition to be followed as an outpatient. CONDITION: Stable. TIME SPENT: More than 60 minutes. MARIZOL
--- NOTE | 2021-01-12 13:50 | PN ---
01/07/2021: Level 5 01/08/2021: D as in discharge MTDD
== END 2021-01-08 16:15 | disposition home or self-care (01) | DRG 309 ==
LOC: LAB 09:21 → MEDSURG A 10:56
PROVIDERS: ADMIT Internal Medicine; ATTEND Internal Medicine
DX: F33.9 Major depressive disorder, recurrent, unspecified; K21.9 Gastro-esophageal reflux disease without esophagitis; M51.36 Other intervertebral disc degeneration, lumbar region; Z20.822 Contact with and (suspected) exposure to COVID-19; D64.9 Anemia, unspecified; R30.0 Dysuria; G47.33 Obstructive sleep apnea (adult) (pediatric); I10 Essential (primary) hypertension; R07.89 Other chest pain; R00.1 Bradycardia, unspecified; N40.1 Benign prostatic hyperplasia with lower urinary tract symptoms; M17.9 Osteoarthritis of knee, unspecified